=== PATIENT | male | born 1950 | race Caucasian/White ===

== ENCOUNTER → 2016-09-27 | Outpatient (CLI) | payer OTHER ==
[2016-09-27 13:22] LABS: BASO % 0.3 %; BASO ABS # 0.02 K/uL (0-0.2); COMPLETE YES; EOS % 3.7 %; HEMATOCRIT 46.6 % (42-52); IG% 0.2 %; LYMPH % 24.1 %; LYMPH ABS # 1.38 K/uL (1.2-3.4); MEAN CELL VOLUME 88.3 fL (80-100); MEAN CORPUSCULAR HEMOGLOBIN 29.9 pg (25-34); MEAN CORPUSCULAR HGB CONC 33.9 g/dl (32-36); MONO % 11.2 %; NEUT % 60.5 %; PLATELET COUNT 216 K/uL (130-400); RED BLOOD COUNT 5.28 M/uL (4.7-6.1); WHITE BLOOD COUNT 5.73 K/uL (4.8-10.8)
[2016-09-27 14:02] LABS: ALT/SGPT 43 U/L (12-78); BLOOD UREA NITROGEN 21 mg/dl (7-18); BUN/CREATININE RATIO 19.1 (10-20); CARBON DIOXIDE 27 mmol/L (21-32); CHLORIDE 104 mmol/L (98-107); CHOLESTEROL 159 mg/dl (0-200); GLUCOSE 87 mg/dl (70-99); POTASSIUM 3.6 mmol/L (3.5-5.1); SODIUM 141 mmol/L (136-145); TRIGLYCERIDES 144 mg/dl (0-150); VERY LOW DENSITY LIPOPROT CALC 29 mg/dl
[2016-09-27 14:06] LABS: ALKALINE PHOSPHATASE 51 U/L (45-117); AST/SGOT 30 U/L (15-37); CHOLESTEROL/HDL RATIO 2.4; HDL CHOLESTEROL 66 mg/dl; LDL CHOLESTEROL CALCULATED 64 mg/dl
== END | disposition home or self-care (01) ==
LOC: C.LABPVFM 10:43
PROVIDERS: ATTEND Family Medicine
DX: Z13.220 Encounter for screening for lipoid disorders (principal); Z12.5 Encounter for screening for malignant neoplasm of prostate; I10 Essential (primary) hypertension; L98.9 Disorder of the skin and subcutaneous tissue, unspecified

== ENCOUNTER → 2016-11-15 | Outpatient (CLI) | payer OTHER ==
[2016-11-15 12:46] LABS: BLOOD UREA NITROGEN 20 mg/dl (7-18); BUN/CREATININE RATIO 18.1 (10-20); CALCIUM 9.3 mg/dl (8.5-10.1); CARBON DIOXIDE 28 mmol/L (21-32); CHLORIDE 102 mmol/L (98-107); GLUCOSE 94 mg/dl (70-99); POTASSIUM 3.5 mmol/L (3.5-5.1); SODIUM 138 mmol/L (136-145)
== END | disposition home or self-care (01) ==
LOC: C.LABPVFM 09:46
PROVIDERS: ATTEND Family Medicine
DX: I10 Essential (primary) hypertension (principal)

== ENCOUNTER → 2017-11-09 | Outpatient (CLI) | payer OTHER ==
[2017-11-09 12:54] LABS: BLOOD UREA NITROGEN 22 mg/dl (7-18); CALCIUM 9.7 mg/dl (8.5-10.1); CARBON DIOXIDE 31 mmol/L (21-32); CREATININE 1.21 mg/dl (0.60-1.40); GLUCOSE 93 mg/dl (70-99); POTASSIUM 3.4 mmol/L (3.5-5.1); SODIUM 138 mmol/L (136-145)
== END | disposition home or self-care (01) ==
LOC: C.LABPVFM 08:44
PROVIDERS: ATTEND Family Medicine
DX: I10 Essential (primary) hypertension (principal); E87.6 Hypokalemia

== ENCOUNTER → 2017-12-14 | Outpatient (CLI) | payer OTHER | END | disposition home or self-care (01) | LOC: C.LABPVFM 13:03 | PROVIDERS: ATTEND Family Medicine | DX: E87.6 Hypokalemia (principal) ==

== ENCOUNTER 2018-10-30 21:43 | Inpatient (IN) ==
[2018-10-30] MEDS ORDERED: HYDROmorphone INJ 0.5 MG/0.5 ML SYR IV PRN (23:05)
[2018-10-30] MEDS ORDERED: ONDANSETRON INJ 2 MG/ML 2 ML VIAL IV STA (23:05)
[2018-10-30] MEDS ORDERED: SODIUM CHLORIDE 0.9% 1000ML 1,000 ML IV ONE (23:05)
[2018-10-30 23:25] LABS: Hematocrit (blood only) 46.4 % (42-52); Hemoglobin 15.3 g/dL (14.0-18.0); Mean Corpuscular Volume 92.2 fL (80-100); Mean Platelet Volume 9.6 fL (7.4-10.4); Platelet Count 216 K/uL (130-400); RDW Coefficient of Variation 13.7 % (11.5-14.5); RDW Standard Deviation 46.2 fL (36.4-46.3); Red Blood Count 5.03 M/uL (4.7-6.1); White Blood Count 12.08 K/uL (4.8-10.8)
[2018-10-30 23:42] LABS: BUN Creatinine Ratio 15.9 (10-20); Calcium 8.9 mg/dl (8.5-10.1); Creatinine Clr Calc Pharmacy 56.5 ml/min; Est GFR (African American) 60.4; Est GFR (Non-African American) 52.1
--- NOTE | 2018-10-31 00:22 | History & Physical Report ---
Date of Service October 31, 2018 Assessment & Plan (1) Left nephrolithiasis: Patient with large partially obstructing stone in right kidney. No evidence of infection. Pain poorly controlled with outpatient regimen. -Admit to medical floor -Pain control with Toradol PRN and Dilaudid 1mg IV q 2 hours PRN -Nausea control with Zofran PRN -NSS at 100 mL/hr x 1 liter -Strain urine -Flomax 0.4mg po daily -Urology consultation - appreciate assistance with this case -Patient NPO after midnight, INR ordered for AM for possible intervention (2) Hypertension: Blood pressure mildly elevated at present, 145/88 -Continue home HCTZ -Pain control as above -Will hold home Losartan - patient states that he doesn't take this medication routinely as it makes him feel "out of it" -Monitor BP F/E/N - NSS at 100mL/hr x 1 liter, monitor electrolytes and replete as needed, NPO for now Ppx - SCDs to bilateral LEs Code - Full per discussion with patient Dispo - Admit to medical floor, continuous pulse oximetry History of Present Illness Chief Complaint: Left flank pain Primary Care Provider: Giles Gallagher MD Mr. Jones is a 68yo male with history of HTN presenting with left nephrolithiasis. He reports that symptoms began 10/30/18 at appx 06:00, aches and pain in the left flank and shoulder. He also had nausea with 7 episodes of non-bloody/non-bilious vomiting and hot flashes. He was seen in the ER earlier on 10/30. CT of the abdomen was performed which revealed a 1cm calculus in the left renal pelvis with mild hydronephrosis. UA was negative for infection. He was administered Dilaudid, Morphine, Zofran and NSS with improvement in his symptoms. He was discharged home with Oxycodone and Flomax with instruction to call Urology in the am for further evaluation and intervention. When patient returned home he reports that his pain continued to worsen. He received minimal relief from the Oxycodone therefore he returned to the ER. He denies fevers/chills/sweats. No additional nausea or vomiting. He is passing urine without difficulty. No dysuria. No additional complaints at this time. ER Course: Dilaudid, Zofran, NSS Allergies Allergy/AdvReac Type Severity Reaction Status Date / Time No Known Allergies Allergy Verified 10/30/18 23:58 Home Medications Home Medications Medication Instructions Recorded Confirmed Type hydrochlorothiazide 50 mg PO DAILY 10/30/18 10/30/18 History losartan 25 mg PO DAILY 10/30/18 10/30/18 History oxycodone 5 mg PO Q6H PRN #14 tab 10/30/18 Rx potassium 0 mg PO DAILY 10/30/18 10/30/18 History tamsulosin [Flomax] 0.4 mg PO DAILY #10 cap 10/30/18 Rx Past Med/Surg History Medical History Hypertension Hydronephrosis Kidney stones Surgical History S/P knee surgery Family History Other Family history non-contributory Social History Preferred Language: Irish Feels Safe at Home: Yes Smoking Status: Never smoker Hx Alcohol Use: No Hx Substance Use: No Review of Systems All systems reviewed & are unremarkable except as noted in HPI & below Physical Exam Vital Signs (Past 24 Hours): Last Vital Signs Temp 36.8 C 10/30/18 22:16 Pulse 86 10/30/18 23:28 Resp 16 10/30/18 23:28 BP 145/88 H 10/30/18 23:28 Pulse Ox 97 10/30/18 23:28 Physical Exam: General: patient resting, in mild discomfort, NAD, non-toxic in appearance, AA&O x 4 Skin: warm, dry, intact, no rashes or lesions HEENT: NC/AT, PERRL, EOMI, anicteric sclera, conjunctiva without injection, external ear normal to inspection and nontender, nares patent, moist mucus membranes, dentition intact, no oropharyngeal lesions, neck supple, trachea midline, no LAD, no thyromegaly, no JVD Heart: +S1/S2, regular, no m/r/g Lungs: equal air entry bilaterally, no rales/rhonchi/wheezes, pulse oximetry 89 - 91% on room air Abd: +BS, soft, NT/ND, no masses/organomegaly/ascites, small reducible umbilical hernia, +left CVA tenderness Ext: warm, 2+ pulses in UE/LE bilaterally, no clubbing/cyanosis or edema Neuro: nonfocal, patient AA&O x 4, speech intact, no facial droop, moving all extremities on command with equal strength /5 Results & Data Laboratory Results Lab Results 10/30/18 10/30/18 Range/Units 23:18 23:18 WBC 12.08 H (4.8-10.8) K/uL RBC 5.03 (4.7-6.1) M/uL Hgb 15.3 (14.0-18.0) g/dL Hct 46.4 (42-52) % MCV 92.2 (80-100) fL MCH 30.4 (25-34) pg MCHC 33.0 (32-36) g/dL RDW Std Deviation 46.2 (36.4-46.3) fL RDW Coeff of Karla 13.7 (11.5-14.5) % Plt Count 216 (130-400) K/uL MPV 9.6 (7.4-10.4) fL Sodium 138 (136-145) mmol/L Potassium 4.0 (3.5-5.1) mmol/L Chloride 105 (98-107) mmol/L Carbon Dioxide 26 (21-32) mmol/L Anion Gap 7.0 (3-11) BUN 22 H (7-18) mg/dl Creatinine 1.39 (0.6-1.4) mg/dl Est Cr Clr Drug Dosing 56.5 ml/min Est GFR ( Amer) 60.4 Est GFR (Non-Af Amer) 52.1 BUN/Creatinine Ratio 15.9 (10-20) Glucose 141 H (70-99) mg/dl Calcium 8.9 (8.5-10.1) mg/dl Code Status & VTE Plan Code Status FULL VTE Prophylaxis Plan VTE Prophylaxis will be ordered: Yes Critical Care Time Critical Care Time: No (1) Hypertension Hypertension type: essential hypertension Qualified Code(s): I10 - Essential (primary) hypertension
[2018-10-31] MEDS: SODIUM CHLORIDE 0.9% 1000ML 1,000 ML IV SCH ×3 (00:50→21:07)
[2018-10-31] MEDS ORDERED: ONDANSETRON INJ 2 MG/ML 2 ML VIAL IV PRN ×2 (01:06→15:59)
[2018-10-31] MEDS ORDERED: ACETAMINOPHEN 325 MG TAB PO PRN (01:06)
[2018-10-31] MEDS: HYDROmorphone INJ 1 MG/ML SYRINGE IV PRN ×3 (01:12→19:38)
[2018-10-31 08:41] LABS: Eosinophils # (auto) 0.03 K/uL (0-0.5); Eosinophils % (auto) 0.3 %; Hematocrit (blood only) 42.4 % (42-52); Hemoglobin 13.6 g/dL (14.0-18.0); Immature Granulocytes # (auto) 0.02 K/uL (0.00-0.02); Immature Granulocytes % (auto) 0.2 %; Lymphocytes # (auto) 0.61 K/uL (1.2-3.4); Lymphocytes % (auto) 6.3 %; Mean Corpuscular Hgb Conc 32.1 g/dL (32-36); Mean Corpuscular Volume 92.6 fL (80-100); Mean Platelet Volume 9.5 fL (7.4-10.4); Monocytes # (auto) 1.11 K/uL (0.11-0.59); Monocytes % (auto) 11.6 %; Neutrophils # (auto) 7.84 K/uL (1.4-6.5); Neutrophils % (auto) 81.6 %; Platelet Count 197 K/uL (130-400); RDW Coefficient of Variation 13.8 % (11.5-14.5); RDW Standard Deviation 46.4 fL (36.4-46.3); Red Blood Count 4.58 M/uL (4.7-6.1); White Blood Count 9.61 K/uL (4.8-10.8)
[2018-10-31 08:50] LABS: INR 1.1 (0.9-1.1); Prothrombin Time 10.9 Seconds (9.0-12.0)
[2018-10-31] MEDS: TAMSULOSIN HCL 0.4 MG CAP PO SCH (09:04)
[2018-10-31 09:17] LABS: BUN Creatinine Ratio 19.2 (10-20); Calcium 8.3 mg/dl (8.5-10.1); Creatinine Clr Calc Pharmacy 70.2 ml/min; Est GFR (African American) 79.2; Est GFR (Non-African American) 68.3; Potassium 3.8 mmol/L (3.5-5.1)
--- NOTE | 2018-10-31 10:15 | Urology Consultation ---
Date of Consultation October 31, 2018 Assessment & Plan (1) Renal colic: 1cm stone at [facility]. Stone has good visibility on KUB (I went to the XR machine to view images myself as images are not able to be seen on EMR with PACS downtime). Pain is somewhat controlled today, although patient has a lot of concerns about going home with stone & pain medication as this did not control his pain yesterday, resulting in admission. Discussed options including continued symptom control/outpatient stone management vs. ureteral stent. Patient wishes to proceed with L ureteral stent placement today. Risks and benefits including anesthesia, bleeding, and infection reviewed. Patient added to OR schedule. Patient likely stable for discharge with pain medication after procedure unless there are unexpected complications. Patient to follow up at [facility] outpatient office [facility], tomorrow @ 10:00am with OZ Acuña to coordinate outpatient ESWL for definitive stone treatment. (2) Hydronephrosis: History of Present Illness Reason for Consultation: 1cm L renal pelvis stone Attending Physician: Eduardo Davidson History of Present Illness 68YO male with 1cm stone at [facility]. Patient reports worsening flank pain bringing him to the ER yesterday morning. CT andomen/pelvis demonstrated 1cm stone in L renal pelvis, resulting hydronephrosis, and L renal cysts. Patient was discharged with pain medication and advised to call outpatient [facility] office. Due to pain worsening, uncontrolled with pain medication, patient returned to the ER and was admitted for observation. This morning, he reports that his pain is still bothersome. Primarily in L flank, radiates to lower abdomen. Continues to void spontaneously without difficulty. Denies fever/chills. Denies nausea/vomiting. Denies dysuria/hematuria. Reports 1x instance of stone with spontaneous passage about 18 years ago, thinks that he may have seen a urologist at that time but not since. Allergies Allergy/AdvReac Type Severity Reaction Status Date / Time No Known Allergies Allergy Verified 10/30/18 23:58 Home Medications Home Medications Medication Instructions Recorded Confirmed Type hydrochlorothiazide 50 mg PO DAILY 10/30/18 10/31/18 History losartan 25 mg PO DAILY 10/30/18 10/31/18 History oxycodone 5 mg PO Q6H PRN #14 tab 10/30/18 10/31/18 Rx potassium 0 mg PO DAILY 10/30/18 10/31/18 History tamsulosin [Flomax] 0.4 mg PO DAILY #10 cap 10/30/18 10/31/18 Rx Patient History Medical History Hypertension Hydronephrosis Kidney stones Surgical History S/P knee surgery Family History Other Family history non-contributory Social History Preferred Language: Upper Sorbian Communication Ability: Effective Chrome Worker Required: No Beliefs That Will Affect Care: None Current Living Situation: Spouse Other Information That Helps Us Care for You: No Feels Safe at Home: Yes Safety Concerns: Feels Safe At This Time Smoking Status: Never smoker Hx Alcohol Use: Yes Hx Substance Use: No Review of Systems Constitutional: no fever and no chills Eyes: + corrective lenses Respiratory: no dyspnea Cardiovascular: no chest pain Gastrointestinal: + abdominal pain and + nausea; no vomiting Genitourinary (Male): + flank pain; no dysuria, no difficulty urinating and no hematuria Musculoskeletal: + back pain Integumentary: no problem reported Neurologic: no tingling and no numbness Psychiatric: no problem reported Physical Exam Vital Signs (Past 24 Hours): Last Vital Signs Temp 36.6 C 10/31/18 07:43 Pulse 69 10/31/18 07:43 Resp 18 10/31/18 07:43 BP 144/77 H 10/31/18 07:43 Pulse Ox 96 10/31/18 08:01 Constitutional: WD/WN, vitals as above Neck: normal visual inspection Respiratory: normal respiratory effort; does not use accessory muscles Cardiovascular: Vessels: no JVD Gastrointestinal (Abdomen): Percussion/Palpation: + abdomen tender and abdomen soft Psychiatric: A+Ox3, euthymic affect Genitourinary: + CVA tenderness (1) Hydronephrosis Hydronephrosis type: unspecified Qualified Code(s): N13.30 - Unspecified hydronephrosis
--- NOTE | 2018-10-31 13:55 | XRay Report ---
KUB CLINICAL HISTORY: No left stone. COMPARISON STUDY: CT of the abdomen and pelvis October 30, 2018 at 12:41 PM. FINDINGS: A 1 cm calculus projecting over the left renal pelvis is unchanged since CT performed earli today. Pelvic calcifications reflect phleboliths. No additional urinary calculi are identified. Th e bowel gas pattern is normal. IMPRESSION: No change in position of a 1 cm left renal pelvis calculus. Electronically signed by: Rohit Villegas M.D. 10/31/2018 1:54 PM
[2018-10-31] MEDS ORDERED: DEXAMETHASONE SOD INJ 4 MG/ML VIAL ONE (15:42)
[2018-10-31] MEDS ORDERED: ONDANSETRON INJ 2 MG/ML 2 ML VIAL ONE (15:42)
[2018-10-31] MEDS ORDERED: PROPOFOL IV EMULSION 10 MG/ML 20 ML VIAL IV ONE ×2 (15:42→16:55)
[2018-10-31] MEDS ORDERED: LIDOCAINE HCL 2% 2 ML VIAL/AMP(20MG/ML) INFIL ONE (15:42)
[2018-10-31] MEDS ORDERED: MIDAZOLAM HCL 1 MG/ML 2ML VIAL ONE (15:43)
[2018-10-31] MEDS ORDERED: fentaNYL citrate 100 MCG/2 ML VIAL ONE (15:43)
[2018-10-31] MEDS ORDERED: KETAMINE HCL INJ 50 MG/ML 10 ML VIAL ONE (15:45)
[2018-10-31] MEDS ORDERED: CIPROFLOXACIN 400MG / 200ML D5W IV ONE (15:54)
--- NOTE | 2018-10-31 15:58 | Anesthesiology Consultation ---
Date of Service October 31, 2018 HTN Partially obstructing renal stone Snoring Assessment & Plan (1) Encounter for pre-operative examination: Chart Review Chart Review: Acceptable Risk for Surgery and Patient NOT seen in Pre Admission Testing Consults Requested none ASA ASA2 Proposed Anesthesia Anesthesia Type: MAC Risk / Benefits Reviewed With: PT / POA / Parent / Guardian, Accepts Plan and Informed Consent Obtained NPO Date Last Intake of Fluids: 10/31/18 Time Last Intake of Fluids: 09:00 Date Last Intake of Solids: 10/29/18 Time Last Intake of Solids: 23:59 History Surgery Operation Date: 10/31/18 10:00 Proposed Procedures p Left Ureteral Stent Insertion, Cystoscopy - Caesar Valencia MD Height/Weight Height: 5 ft 8 in Weight: 89.4 kg Allergies Allergy/AdvReac Type Severity Reaction Status Date / Time No Known Allergies Allergy Verified 10/30/18 23:58 Medications Home Medications Medication Instructions Recorded Confirmed Last Taken hydrochlorothiazide 50 mg PO DAILY 10/30/18 10/31/18 Unknown losartan 25 mg PO DAILY 10/30/18 10/31/18 Unknown oxycodone 5 mg PO Q6H PRN #14 tab 10/30/18 10/31/18 Unknown potassium 0 mg PO DAILY 10/30/18 10/31/18 Unknown tamsulosin [Flomax] 0.4 mg PO DAILY #10 cap 10/30/18 10/31/18 Unknown Active Medications Generic Name Dose Route Start Last Admin Trade Name Freq PRN Reason Stop Dose Admin Hydrochlorothiazide 50 mg 10/31/18 09:00 10/31/18 09:04 Hctz PO 11/30/18 08:59 50 mg DAILY JEFF Administration Hydromorphone HCl 1 mg 10/31/18 01:06 10/31/18 06:58 Dilaudid IV 11/14/18 01:05 1 mg Q2H PRN Administration Pain Sodium Chloride 1,000 mls @ 100 mls/hr 10/31/18 01:06 10/31/18 14:28 Nss 1000ml IV 11/30/18 01:05 Infused .Q10H JEFF Infusion Tamsulosin HCl 0.4 mg 10/31/18 09:00 10/31/18 09:04 Flomax PO 11/30/18 08:59 0.4 mg DAILY JEFF Administration Past Medical History Medical History Hypertension Hydronephrosis Kidney stones Past Family History Family History Other Family history non-contributory Past Surgical History Surgical History S/P knee surgery Social History Smoking Status: Never smoker Hx Alcohol Use: Yes alcohol intake frequency: holidays/special occasions only Hx Substance Use: No Physical Exam Vital Signs Last Vital Signs Temp 36.7 C 10/31/18 14:57 Pulse 68 10/31/18 14:57 Resp 18 10/31/18 14:57 BP 131/77 10/31/18 14:57 Pulse Ox 93 10/31/18 14:57 Constitutional + obese ENMT Mouth: + dentures (full upper, partial lower (all out)) and + poor dentition; no TMJ abnormality Thyromental Distance: > or= 3.5 Finger Breadths Mallampati Class: II Neck normal visual inspection and + thick neck Respiratory normal respiratory effort Cardiovascular Rate/Rhythm: regular rate and regular rhythm Neurologic moves all extremities Psychiatric Orientation: alert Testing Laboratory Results 10/31/18 08:11 10/31/18 08:11 PT 10.9 Seconds (9.0-12.0) 10/31/18 08:11 INR 1.1 (0.9-1.1) 10/31/18 08:11
[2018-10-31] MEDS ORDERED: ATROPINE SULFATE 0.1 MG/ML 10ML SYR IV PRN (15:59)
[2018-10-31] MEDS ORDERED: ePHEDrine sulfate 50 MG/ML AMP IV PRN (15:59)
[2018-10-31] MEDS ORDERED: IOTHALAMATE MEGLUMINE II 17.2% 250 ML VIAL ONE (16:31)
--- NOTE | 2018-10-31 16:52 | Operative Report ---
Post Operative Report Pre & Post Diagnosis Operation Date: 10/31/18 10:00 Pre-Op Diagnosis: Left Ureteral Stones Post-Op Diagnosis: Left Ureteral Stones Procedure Operation Date: 10/31/18 10:00 Actual Procedures p Cystoscopy,Left Retrograde Pyelogram and Left Ureteral Stent Insertion(Left) - Caesar Valencia MD Surgeon Jose L Valencia MD Boxer Operator none Estimated Blood Loss 0 Findings Consistent with Post-Op Diagnosis Specimens none Description of Procedure Patient was identified in the preoperative holding area, appropriate informed consents reviewed and completed and the patient was transported to the operating suite. Upon arrival he received appropriate preoperative antibiotics in the form of ciprofloxacin. Adequate sedation was achieved and he was placed in dorsal lithotomy position where sterilely prepped and draped in standard fashion. To begin the case I passed a 22 Pashto cystoscope with 30 degree lens. Inspection revealed no evidence of stricture disease. He has a relatively large prostate with a high bladder neck. Inspection of the bladder revealed no mucosal abnormalities or stones. Was able to identify the right ureteral orifice without difficulty with the left ureteral orifice was not readily visible. As I inspected further it appeared to be on the posterior side of the ridge created from the bladder neck. I utilize a 70 degree lens to better visualize this and utilizing a 70 degree lens I was able to cannulate the UO with a sensor wire. I then exchanged back to a 30 degree lens and advanced the wire to the level of the kidney. I did pass a 5 Pashto open-ended catheter over the wire and then opacified the collecting system confirming my position. It appears that the stone was pushed retrograde into an upper pole calyx. I then placed a 6 Pashto by 26 cm double-J ureteral stent seeing a good curl in the renal pelvis as well as a good curl in the bladder. I decompressed the bladder and concluded the case. The patient was reversed from anesthesia and taken to the PACU in stable condition. There were no complications. I attest to the content of the Intraoperative Record and any orders documented therein. Any exceptions are noted below.
[2018-10-31] MEDS: fentaNYL citrate 100 MCG/2 ML VIAL IV PRN ×2 (17:14→17:19)
--- NOTE | 2018-10-31 17:29 | Anesthesiology Progress Note ---
Date of Service October 31, 2018 Anesthesia Post Procedure Vital Signs Vital Signs: Temp Pulse Pulse Pulse Resp BP BP 10/31/18 17:00 98.4 F 68 16 133/79 10/31/18 14:57 98.1 F 68 18 131/77 10/31/18 11:15 98.2 F 64 18 136/79 10/31/18 08:01 10/31/18 07:43 97.9 F 69 18 144/77 H 10/31/18 00:50 97.7 F 60 18 166/90 H 10/31/18 00:38 58 L 16 112/75 10/30/18 23:28 86 16 145/88 H 10/30/18 22:16 98.2 F 73 16 165/92 H Pulse Ox 10/31/18 17:00 96 10/31/18 14:57 93 10/31/18 11:15 91 10/31/18 08:01 96 10/31/18 07:43 87 L 10/31/18 00:50 94 10/31/18 00:38 96 10/30/18 23:28 97 10/30/18 22:16 92 Pain Intensity Left Flank: Pain Intensity: 0 Penis: Pain Intensity: 7 Notes Mental Status: alert / awake / arousable and participated in evaluation Patient Amnestic to Procedure: Yes Nausea / Vomiting: adequately controlled Pain: adequately controlled Airway Patency, RR, SpO2: stable & adequate BP & HR: stable & adequate Hydration State: stable & adequate Anesthetic Complications: no major complications apparent and Pt Satisfied with anesthetic care
--- NOTE | 2018-10-31 17:52 | Fluoroscopy Report ---
FL retrograde includes kub HISTORY: LT CYSTO LASER STENT FLUOROSCOPY TIME: 25 seconds FINDINGS: 3 fluoroscopic spot images were submitted for review. Initial images demonstrate retrograde opacification of the left renal collecting system. There is mild fullness within the left renal guadalupe ecting system. This is followed by placement of a left ureteral stent which appears to be in good pos ition. IMPRESSION: Fluoroscopy provided for left ureteral stent placement. Electronically signed by: Myron Porter M.D. 10/31/2018 5:51 PM
[2018-11-01] MEDS: KETOROLAC TROMETHAMINE 15 MG/ML VIAL IV PRN ×2 (01:39→09:03)
[2018-11-01] MEDS: SODIUM CHLORIDE 0.9% 1000ML 1,000 ML IV SCH (05:19)
[2018-11-01] MEDS ORDERED: CIPROFLOXACIN 400 MG/200 ML BAG IV SCH (06:00)
[2018-11-01] MEDS: TAMSULOSIN HCL 0.4 MG CAP PO SCH (09:00)
--- NOTE | 2018-11-01 09:08 | Discharge Summary ---
Date of Service November 01, 2018 Admission HPI Per Admitting Provider Mr. Jones is a 68yo male with history of HTN presenting with left nephrolithiasis. He reports that symptoms began 10/30/18 at appx 06:00, aches and pain in the left flank and shoulder. He also had nausea with 7 episodes of non-bloody/non-bilious vomiting and hot flashes. He was seen in the ER earlier on 10/30. CT of the abdomen was performed which revealed a 1cm calculus in the left renal pelvis with mild hydronephrosis. UA was negative for infection. He was administered Dilaudid, Morphine, Zofran and NSS with improvement in his symptoms. He was discharged home with Oxycodone and Flomax with instruction to call Urology in the am for further evaluation and intervention. When patient returned home he reports that his pain continued to worsen. He received minimal relief from the Oxycodone therefore he returned to the ER. He denies fevers/chills/sweats. No additional nausea or vomiting. He is passing urine without difficulty. No dysuria. No additional complaints at this time. ER Course: Dilaudid, Zofran, NSS Principal Diagnosis Left ureteral stone s/p stent Discharge Exam General: patient resting, in mild discomfort, NAD, non-toxic in appearance, AA&O x 4 Skin: warm, dry, intact, no rashes or lesions HEENT: NC/AT, PERRL, EOMI, anicteric sclera, conjunctiva without injection, external ear normal to inspection and nontender, nares patent, moist mucus membranes, dentition intact, no oropharyngeal lesions, neck supple, trachea midline, no LAD, no thyromegaly, no JVD Heart: +S1/S2, regular, no m/r/g Lungs: equal air entry bilaterally, no rales/rhonchi/wheezes, pulse oximetry 89 - 91% on room air Abd: +BS, soft, NT/ND, no masses/organomegaly/ascites, small reducible umbilical hernia, no longer having Left CVA tenderness Ext: warm, 2+ pulses in UE/LE bilaterally, no clubbing/cyanosis or edema Neuro: nonfocal, patient AA&O x 4, speech intact, no facial droop, moving all extremities on command with equal strength 5/5 Discharge Data Allergies Allergy/AdvReac Type Severity Reaction Status Date / Time No Known Allergies Allergy Verified 11/03/18 08:02 Consultations 10/30/18 23:15 ED Decision to Admit Stat 10/31/18 01:06 Consult Urology Routine Procedures Performed Operation Date: 10/31/18 10:00 Actual Procedures p Cystoscopy,Left Retrograde Pyelogram and Left Ureteral Stent Insertion(Left) - Caesar Valencia MD Ordered Studies 10/31/18 14:00 FL retrograde includes kub Routine Hospital Course (1) Left nephrolithiasis: Patient with large partially obstructing stone in left kidney. No evidence of infection. Pain poorly controlled with outpatient regimen. -Admit to medical floor -Pain control with Toradol PRN and Dilaudid 1mg IV q 2 hours PRN -Nausea control with Zofran PRN -NSS at 100 mL/hr x 1 liter -Strain urine -Flomax 0.4mg po daily -Urology consultation - appreciate assistance with this case table for discharge with pain medication after procedure unless there are unexpected complications. Patient to follow up at [facility] outpatient office [address] [place] [address], tomorrow 11/01/18 @ 10:00am with OZ Acuña to coordinate outpatient ESWL for definitive stone treatment. Will defer antibiotics to Urology (2) Hypertension: Blood pressure mildly elevated at present, 145/88 -Continue home HCTZ Will continue losartan Total Time Total Time Spent Total Time Spent (In Minutes): 31 Total Time Includes: Examination of the Patient, Discharge Planning and Medication Reconciliation Discharge Plan Discharge Items Patient Disposition: Home - Self-Care Reason For Visit: RENAL CALCULI Discharge Diagnosis: Renal Stone Discharge Goals: Decrease discomfort Activity: Resume your previous activity Non-emergency contact: Primary Care Provider Call non-emergency contact if: you have any medication questions Follow-up/Referrals: Giles Gallagher MD [Primary Care Provider] - Diet: Regular Addtl Provider Instructions: Will followup with Urology at 10 am today. Will defer antibiotics to urology. Prescriptions: Continued hydrochlorothiazide 50 mg Tablet 50 mg PO QAM RF: 0 losartan 25 mg Tablet 25 mg PO Q2D RF: 0 oxycodone 5 mg tablet 5 mg PO Q6H PRN (Reason: pain) Qty: 14 RF: 0 No Action potassium chloride 10 mEq Capsule, Extended Release 10 meq PO TID RF: 0 tamsulosin [Flomax] 0.4 mg capsule 0.4 mg PO QAM RF: 0 saw palmetto 500 mg Capsule 1,000 mg PO QAM RF: 0 ciprofloxacin HCl [Cipro] 500 mg Tablet 500 mg PO BID RF: 0 phenazopyridine [Azo Urinary Pain Relief] 95 mg Tablet 95 mg PO TID PRN (Reason: URINARY PAIN) RF: 0 oxycodone-acetaminophen [Percocet] 5-325 mg tablet 1 tab PO Q6H PRN (Reason: pain) Qty: 20 RF: 0 Stand-Alone Forms: [facility] Discharge Orders: Discharge Order (Routine); Ordered 11/01/18 Ordered By: Eduardo Davidson Admission Data Admit Date/Time: 10/31/18 00:04 Attending Provider: Eduardo Davidson Admit Provider: Quynh Kim Primary Care Provider: Giles Gallagher Other Providers: Caesar Valencia Service: Surgical Services Other Interventions: Discharge Summary Assessment (RN) Last Done: 11/01/18 09:08 DC Date/Time DO NOT enter until pt leaves facility: 11/01/18 09:50
--- NOTE | 2018-11-01 21:59 | Emergency Department Note ---
Entered by Sofia Ribera acting as a scribe for Chichi Porter DO History of Present Illness General Chief complaint: Kidney Stone Stated complaint: KIDNEY STONE Time Seen by Provider: 10/30/18 22:56 Source: patient Limitations: no limitations History of Present Illness Onset (ago): hour(s) greater than 10 Location: back (flank) Severity: severe and similar to prior episodes Pain Consistency: + constant Maximum Pain Intensity: 10 Relieved By: + none Associated symptoms: + nausea/vomiting and + other ("feeling like he's burning up" ) Treatments prior to arrival: other (oxycodone) The patient is a 68 year old male who presents to the Emergency Room with complaints of severe flank pain that began this morning at 0700, about 16 hours ago. The patient states that he was seen in the ER earlier today, and he was diagnosed with a 1cm large kidney stone. He notes that the pain is constant, and it feels similar to the symptoms he's had before with kidney stones. The patient says that this is the largest kidney stone he's had, noting that he hasn't has a kidney stone in 17 years. The patient reports that he present to the ER this evening, because he could not manage the pain. He states that he was given 5 mg Oxycodone to take every 6 hours, but he has been taking it every 3 hours. He states that the Oxycodone did not provide any relief. The patient notes that he was prescribed Flomax. He reports that he was given Morphine and Dilaudid earlier today, noting that the Dilaudid helped relieve the pain more. The patient complains of nausea and "feeling like he's burning up." He denies any vomiting after being released earlier today, but states that he was vomiting this morning. Home Medications Home Medications Medication Instructions Recorded Confirmed Type hydrochlorothiazide 50 mg PO DAILY 10/30/18 10/31/18 History losartan 25 mg PO DAILY 10/30/18 10/31/18 History oxycodone 5 mg PO Q6H PRN #14 tab 10/30/18 10/31/18 Rx potassium 0 mg PO DAILY 10/30/18 10/31/18 History tamsulosin [Flomax] 0.4 mg PO DAILY #10 cap 10/30/18 10/31/18 Rx Allergies Allergy/AdvReac Type Severity Reaction Status Date / Time No Known Allergies Allergy Verified 10/30/18 23:58 Past Med/Surg History Medical History Hypertension Hydronephrosis Kidney stones Surgical History S/P knee surgery Family History Other Family history non-contributory Social History Preferred Language: Greek Beliefs That Will Affect Care: None Current Living Situation: Spouse Feels Safe at Home: Yes Smoking Status: Never smoker Hx Alcohol Use: Yes Hx Substance Use: No Review of Systems See HPI for pertinent positives & negatives. and A total of 10 systems reviewed and were otherwise negative Physical Exam Vital Signs Vital Signs - 24 hr 10/31/18 22:54 11/01/18 03:10 11/01/18 07:15 Temperature 36.9 C 37.2 C 37.0 C Temperature Source Oral Oral Oral Pulse Rate [Apical] 70 Pulse Rate [Right Finger] 79 75 Pulse Rhythm [Apical] Regular Pulse Rhythm [Right Finger] Regular Regular Pulse Strength [Apical] Normal Pulse Strength [Right Finger] Normal Normal Respiratory Rate 16 16 20 Respiratory Effort / Characteristics Non-Labored Spontaneous Respiratory Depth Normal Normal Normal Respiratory Pattern Regular Blood Pressure [Left Arm] 121/64 131/70 118/64 Blood Pressure Mean [Left Arm] 83 90 82 Blood Pressure Position [Left Arm] Lying Lying Lying Pulse Oximetry 92 92 94 Oxygen Delivery Method Room Air Room Air Room Air GENERAL: alert, uncomfortable appearing, well nourished, mild distress, non- toxic EYE EXAM: normal conjunctiva, PERRL and EOM's grossly intact OROPHARYNX: no exudate, no erythema, lips, buccal mucosa, and tongue normal and mucous membranes are moist NECK: supple, no nuchal rigidity, no adenopathy, non-tender LUNGS: Clear to auscultation. Normal chest wall mechanics HEART: no murmurs, S1 normal and S2 normal ABDOMEN: abdomen soft, non-tender, normo-active bowel sounds, no masses, no rebound or guarding. BACK: Back is symmetrical on inspection and there is no deformity, no midline tenderness, no CVA tenderness. Left flank and left lower back pain. SKIN: no rashes and no bruising UPPER EXTREMITIES: upper extremities are grossly normal. FROM, nml pulses b/l. LOWER EXTREMITIES: No pitting edema. FROM, nml pulses b/l. NEURO EXAM: Normal sensorium, cranial nerves II-XII grossly intact, normal speech, no gross weakness of arms, no gross weakness of legs. Course 2258: Past medical records reviewed. The patient was evaluated in room C12B, and a complete history and physical examination were performed. 2306: I reviewed the prior labs and imaging and the note from earlier today. 2336: I spoke with Hannah Kim, [facility] hospitalist, about the patient's case. She will evaluate the patient further. Consultations Consultation #1: I spoke with Hannah Kim [facility] hospitalist, about the patient's case. She will evaluate the patient further. Time: 23:36 Administered Medications Discontinued Medications Ciprofloxacin (Cipro) Confirm Administered Dose 400 mg IV .zoojoo.BE-MED ONE Stop: 10/31/18 15:55 Last Admin: 10/31/18 16:02 Dose: 400 mg Documented by: [id number] Fentanyl Citrate (Fentanyl Citrate) 50 mcg IV Q5M PRN PRN Reason: PACU Use Only-Pain Stop: 10/31/18 20:59 Last Admin: 10/31/18 17:19 Dose: 50 mcg Documented by: [id number] Admin: 10/31/18 17:14 Dose: 50 mcg Documented by: [id number] Hydrochlorothiazide (Hctz) 50 mg PO DAILY JEFF Stop: 11/30/18 08:59 Last Admin: 11/01/18 09:00 Dose: 50 mg Documented by: [id number] Admin: 10/31/18 09:04 Dose: 50 mg Documented by: [id number] Hydromorphone HCl (Dilaudid) 0.5 mg IV Q15M PRN PRN Reason: Pain Stop: 11/13/18 23:04 Last Admin: 10/30/18 23:21 Dose: 0.5 mg Documented by: [id number] Hydromorphone HCl (Dilaudid) 1 mg IV Q2H PRN PRN Reason: Pain Stop: 11/14/18 01:05 Last Admin: 10/31/18 19:38 Dose: 1 mg Documented by: [id number] Admin: 10/31/18 06:58 Dose: 1 mg Documented by: [id number] Admin: 10/31/18 01:12 Dose: 1 mg Documented by: [id number] Sodium Chloride (Nss 1000ml) 1,000 mls @ 999 mls/hr IV .Q1H1M ONE Stop: 10/31/18 00:05 Last Infusion: 10/31/18 00:39 Dose: 0 mls/hr Documented by: [id number] Admin: 10/30/18 23:22 Dose: 999 mls/hr Documented by: [id number] Sodium Chloride (Nss 1000ml) 1,000 mls @ 100 mls/hr IV .Q10H JEFF Stop: 11/30/18 01:05 Last Admin: 11/01/18 05:19 Dose: 100 mls/hr Documented by: [id number] Infusion: 11/01/18 05:19 Dose: 100 mls/hr Documented by: [id number] Infusion: 10/31/18 22:30 Dose: 100 mls/hr Documented by: [id number] Admin: 10/31/18 21:07 Dose: 100 mls/hr Documented by: [id number] Admin: 10/31/18 18:15 Dose: Not Given Documented by: [id number] Infusion: 10/31/18 14:28 Dose: 100 mls/hr Documented by: [id number] Infusion: 10/31/18 06:19 Dose: 100 mls/hr Documented by: [id number] Admin: 10/31/18 00:50 Dose: 100 mls/hr Documented by: [id number] Iothalamate Meglumine (Cysto-Conray Ii) Confirm Administered Dose 250 ml .ROUTE .STK-MED ONE Stop: 10/31/18 16:32 Last Admin: 10/31/18 16:43 Dose: 7 ml Documented by: [id number] Ketorolac Tromethamine (Toradol) 15 mg IV Q6H PRN PRN Reason: Pain Stop: 11/05/18 01:05 Last Admin: 11/01/18 09:03 Dose: 15 mg Documented by: [id number] Admin: 11/01/18 01:39 Dose: 15 mg Documented by: [id number] Ondansetron HCl (Zofran) 4 mg IV NOW STA Stop: 10/30/18 23:06 Last Admin: 10/30/18 23:22 Dose: 4 mg Documented by: [id number] Tamsulosin HCl (Flomax) 0.4 mg PO DAILY JEFF Stop: 11/30/18 08:59 Last Admin: 11/01/18 09:00 Dose: 0.4 mg Documented by: [id number] Admin: 10/31/18 09:04 Dose: 0.4 mg Documented by: [id number] Medical Decision Making Differential Diagnosis Etiologies such as shingles, pyelonephritis/UTI, renal colic, appendicitis, diverticulitis, mesenteric ischemia, torsion, aortic pathology, infections, inflammatory bowel disease, bowel obstruction, PUD, biliary pathology, as well as others were entertained. Medical Records Attestation: I reviewed the patient's medical records. Home Medications Current Medication List: was personally reviewed by me Laboratory Data Attestation: I reviewed the patient's lab results. Result diagrams: 10/31/18 08:11 10/31/18 08:11 Lab Results 10/30/18 10/30/18 10/31/18 Range/Units 23:18 23:18 08:11 WBC 12.08 H (4.8-10.8) K/uL RBC 5.03 (4.7-6.1) M/uL Hgb 15.3 (14.0-18.0) g/dL Hct 46.4 (42-52) % MCV 92.2 (80-100) fL MCH 30.4 (25-34) pg MCHC 33.0 (32-36) g/dL RDW Std Deviation 46.2 (36.4-46.3) fL RDW Coeff of Karla 13.7 (11.5-14.5) % Plt Count 216 (130-400) K/uL MPV 9.6 (7.4-10.4) fL Immature Gran % (Auto) % Neut % (Auto) % Lymph % (Auto) % [place] % (Auto) % Eos % (Auto) % Baso % (Auto) % Immature Gran # (Auto) (0.00-0.02) K/uL Neut # (Auto) (1.4-6.5) K/uL Lymph # (Auto) (1.2-3.4) K/uL [place] # (Auto) (0.11-0.59) K/uL Eos # (Auto) (0-0.5) K/uL Baso # (Auto) (0-0.2) K/uL PT (9.0-12.0) Seconds INR (0.9-1.1) Sodium 138 141 (136-145) mmol/L Potassium 4.0 3.8 (3.5-5.1) mmol/L Chloride 105 107 (98-107) mmol/L Carbon Dioxide 26 28 (21-32) mmol/L Anion Gap 7.0 6.0 (3-11) BUN 22 H 21 H (7-18) mg/dl Creatinine 1.39 1.11 (0.6-1.4) mg/dl Est Cr Clr Drug Dosing 56.5 70.2 ml/min Est GFR ( Amer) 60.4 79.2 Est GFR (Non-Af Amer) 52.1 68.3 BUN/Creatinine Ratio 15.9 19.2 (10-20) Glucose 141 H 96 (70-99) mg/dl Calcium 8.9 8.3 L (8.5-10.1) mg/dl 10/31/18 10/31/18 Range/Units 08:11 08:11 WBC 9.61 (4.8-10.8) K/uL RBC 4.58 L (4.7-6.1) M/uL Hgb 13.6 L (14.0-18.0) g/dL Hct 42.4 (42-52) % MCV 92.6 (80-100) fL MCH 29.7 (25-34) pg MCHC 32.1 (32-36) g/dL RDW Std Deviation 46.4 H (36.4-46.3) fL RDW Coeff of Karla 13.8 (11.5-14.5) % Plt Count 197 (130-400) K/uL MPV 9.5 (7.4-10.4) fL Immature Gran % (Auto) 0.2 % Neut % (Auto) 81.6 % Lymph % (Auto) 6.3 % [place] % (Auto) 11.6 % Eos % (Auto) 0.3 % Baso % (Auto) 0.0 % Immature Gran # (Auto) 0.02 (0.00-0.02) K/uL Neut # (Auto) 7.84 H (1.4-6.5) K/uL Lymph # (Auto) 0.61 L (1.2-3.4) K/uL [place] # (Auto) 1.11 H (0.11-0.59) K/uL Eos # (Auto) 0.03 (0-0.5) K/uL Baso # (Auto) 0.00 (0-0.2) K/uL PT 10.9 (9.0-12.0) Seconds INR 1.1 (0.9-1.1) Sodium (136-145) mmol/L Potassium (3.5-5.1) mmol/L Chloride (98-107) mmol/L Carbon Dioxide (21-32) mmol/L Anion Gap (3-11) BUN (7-18) mg/dl Creatinine (0.6-1.4) mg/dl Est Cr Clr Drug Dosing ml/min Est GFR ( Amer) Est GFR (Non-Af Amer) BUN/Creatinine Ratio (10-20) Glucose (70-99) mg/dl Calcium (8.5-10.1) mg/dl Blood Pressure Blood Pressure Findings: Elevated blood pressure Blood Pressure Disposition: further management by hospitalist MDM Narrative Pt returned to the ER due to failed outpt tx of a large stone diagnosed this am. Pt was to f/u with Dr. Valencia in the office tomorrow, however pt unable to tolerate the pain and now having worsening nausea secondary to pain again also. No evidence of UTI on prior UA, pt afebrile here. Renal function stable. Pt admitted to hospitalist for likely urology consult and intervention for large size stone. Impression & Plan Renal colic, Kidney stone on left side Discharge Plan Visit Data *Final* Discharge Date/Time: 10/31/18 00:38 Chief Complaint: Kidney Stone Stated Complaint: KIDNEY STONE ED Provider: Chichi Porter Discharge Problem: Renal colic, Kidney stone on left side Patient Disposition: Admitted As Inpatient Discharge Instructions Interventions: ED Discharge Assessment Last Done: 10/31/18 00:38 The scribe's documentation has been prepared under my direction and personally reviewed by me in its entirety. I confirm that the note above accurately reflects all work, treatment, procedures, and medical decision making performed by me.
== END 2018-11-01 09:50 | disposition home or self-care (01) | DRG 661 ==
LOC: ED 21:43 → SUATTDRO 10-31 00:04 → 3W 10-31 00:04